=== PATIENT | male | born 1990 | race American Indian/Alaskan Native ===

== ENCOUNTER 2017-01-05 06:52 | Emergency (ER) | payer MEDICARE ==
[2017-01-05 07:15] VITALS: BP 114/73
--- NOTE | 2017-01-05 07:33 | Emergency Department Report ---
ED Recheck HPI - General Chief Complaint: Recheck/Abnormal Lab/Rx Stated Complaint: SEIZURE Time Seen by Provider: 01/05/17 07:19 Source: patient, family Mode of arrival: Ambulatory Limitations: No Limitations - History of Present Illness Initial Comments: Patient here with mom to request medication refill". Patient is autistic and able to answer some questions Patient has not taken his Depakote since yesterday. She ran out and he is in between doctors at present. Mom reported the patient is on Depakote for seizures and no neurologist at present. She said patient had seizure last month. She says she usually sees Dr. Sosa at the urgent care across the street but she cannot afford the co-pay anymore. Denies any headache, blurred physician or dizziness. Mom presented with Empty pill bottle. MD Complaint: medication refill request Returns Today for: request for prescription Associated Symptoms: denies: fever, chills, chest pain, shortness of breath, rash, malaise, nasuea, abdominal pain - Related Data Previous Rx's Medication Instructions Recorded Last Taken Type Azithromycin [Zithromax Z-SOPHIA] 250 mg PO DAILY #1 pkg 11/17/15 Unknown Rx Promethazine /Codeine 5 ml PO Q6H PRN #60 ml 11/17/15 Unknown Rx [Phenergan/Codeine 6.25-10 mg/5 ml] Divalproex Dr [Depakote Dr] 250 mg PO BID #60 tablet 01/05/17 Unknown Rx Allergies Allergy/AdvReac Type Severity Reaction Status Date / Time No Known Allergies Allergy Verified 11/17/15 08:40 ED Review of Systems ROS: Stated complaint: SEIZURE Other details as noted in HPI Comment: All other systems reviewed and negative Constitutional: denies: chills, fever Respiratory: no symptoms reported Cardiovascular: denies: chest pain, palpitations, edema, syncope Gastrointestinal: denies: abdominal pain, nausea, vomiting Musculoskeletal: denies: back pain, arthralgia Skin: denies: rash Neurological: denies: headache, numbness, paresthesias, confusion, abnormal gait ED Past Medical Hx - Past Medical History Previous Medical History?: Yes Hx Seizures: Yes Additional medical history: AUTISTIC - Surgical History Past Surgical History?: No - Family History Family history: no significant - Social History Smoking Status: Never Smoker Substance Use Type: None - Medications Home Medications: Home Medications Medication Instructions Recorded Confirmed Last Taken Type Azithromycin [Zithromax Z-SOPHIA] 250 mg PO DAILY #1 pkg 11/17/15 Unknown Rx Promethazine /Codeine 5 ml PO Q6H PRN #60 ml 11/17/15 Unknown Rx [Phenergan/Codeine 6.25-10 mg/5 ml] Divalproex Dr [Depakote Dr] 250 mg PO BID #60 tablet 01/05/17 Unknown Rx ED Physical Exam - General Limitations: No Limitations General appearance: alert, in no apparent distress - Head Head exam: Present: atraumatic, normocephalic, normal inspection - Eye Eye exam: Present: normal appearance, PERRL, EOMI Pupils: Present: normal accommodation - Neck Neck exam: Present: normal inspection, full ROM. Absent: tenderness, meningismus, lymphadenopathy - Respiratory Respiratory exam: Present: normal lung sounds bilaterally. Absent: respiratory distress - Cardiovascular Cardiovascular Exam: Present: regular rate, normal rhythm, normal heart sounds - GI/Abdominal GI/Abdominal exam: Present: soft, normal bowel sounds. Absent: distended, tenderness, guarding, rebound, rigid - Extremities Exam Extremities exam: Present: normal inspection, full ROM, normal capillary refill. Absent: tenderness, pedal edema - Back Exam Back exam: Present: normal inspection, full ROM. Absent: tenderness, CVA tenderness (R), CVA tenderness (L), muscle spasm, paraspinal tenderness, vertebral tenderness, rash noted - Neurological Exam Neurological exam: Present: alert, oriented X3, normal gait, reflexes normal. Absent: motor sensory deficit - Psychiatric Psychiatric exam: Present: normal affect, normal mood - Skin Skin exam: Present: warm, dry, intact, normal color. Absent: rash ED Course Vital Signs 01/05/17 07:13 Temperature 97.6 F Pulse Rate 63 Respiratory 16 Rate Blood Pressure 114/73 O2 Sat by Pulse 99 Oximetry - Reevaluation(s) Reevaluation #1: 01/05/17 08:00 ED course uneventful ED Recheck MDM - Differential Diagnosis Prescription Refill(s) - Medical Decision Making ED course: This is a not to stick patient that presents to the emergency room with his mom. Mom requested a refill on Depakote. She has an AAA bottle and said that patient took Depakote last yesterday. I will go ahead and refill Depakote and referred patient to neurologist and also the primary care doctor. I discussed this with patient and mom and dad in agreement. Patient discharged home in stable condition with his mom with prescription for Depakote. Critical care attestation.: If time is entered above; I have spent that time in minutes in the direct care of this critically ill patient, excluding procedure time. ED Disposition Clinical Impression: Medication refill Disposition: DISCHARGED TO HOME OR SELFCARE Is pt being admited?: No Does the pt Need Aspirin: No Condition: Stable Instructions: Epilepsy (ED) Additional Instructions: Please see referral for primary care and neurologist in discharge instruction per report. Prescriptions: Divalproex Dr [Depakote Dr] 250 mg PO BID #60 tablet Referrals: CECI BARBA MD [Staff Physician] - 3-5 Days MOSES JENKINS MD [Staff Physician] - 3-5 Days Forms: Accompanied Note, Work/School Release Form(ED)
== END 2017-01-05 08:10 | disposition home or self-care (01) ==
LOC: ED 06:52
DX: Z76.0 Encounter for issue of repeat prescription (principal); R56.9 Unspecified convulsions; F84.0 Autistic disorder
CPT/HCPCS: 99282

== ENCOUNTER 2017-03-21 08:22 | Emergency (ER) | payer MEDICARE ==
[2017-03-21 08:32] VITALS: BP 101/64
--- NOTE | 2017-03-21 09:54 | Emergency Department Report ---
Entered by MAMI MARTINEZ, acting as scribe for SADA PENNINGTON PA. ED Recheck HPI - General Chief Complaint: Recheck/Abnormal Lab/Rx Stated Complaint: MEDS REFILL Time Seen by Provider: 03/21/17 08:50 Source: patient, family Mode of arrival: Ambulatory Limitations: No Limitations - History of Present Illness Initial Comments: 26 y/o male with a PMHx of seizures presents to the ED by his mother c/o a medication refill since last night. Patient's mother states that he ran out of Depakote 250 mg (BID) last night. Denies any symptoms. Reports he gets prescription Dr. Ashraf from and urgent car, but couldn't afford to visit him for refills. NKDA. OMALLEY Complaint: medication refill request (Depakote) -: Last night Initial Visit For: other (Depakote medication refill) Returns Today for: request for prescription (Depakote 250 mg BID) Symptoms Since Prior Visit: no new symptoms Context: ran out of medication Associated Symptoms: none - Related Data Previous Rx's Medication Instructions Recorded Last Taken Type Divalproex Dr [Depakote Dr] 250 mg PO BID #60 tablet 01/05/17 03/20/17 20:[address] [DepaKOTE DR] 250 mg PO BID #60 tablet 03/21/17 Unknown Rx Allergies Allergy/AdvReac Type Severity Reaction Status Date / Time No Known Allergies Allergy Verified 03/21/17 08:27 ED Review of Systems Comment: All other systems reviewed and negative Constitutional: no symptoms reported. denies: weakness Eyes: as per HPI ENT: as per HPI Respiratory: no symptoms reported. denies: shortness of breath Cardiovascular: as per HPI Endocrine: no symptoms reported Gastrointestinal: as per HPI. denies: nausea Genitourinary: as per HPI Musculoskeletal: as per HPI Skin: as per HPI Neurological: as per HPI. denies: headache, weakness, paresthesias, abnormal gait ED Past Medical Hx - Past Medical History Hx Seizures: Yes Additional medical history: AUTISTIC - Surgical History Past Surgical History?: No - Social History Smoking Status: Never Smoker Substance Use Type: None - Medications Home Medications: Home Medications Medication Instructions Recorded Confirmed Last Taken Type Divalproex Dr [Depakote Dr] 250 mg PO BID #60 tablet 01/05/17 03/21/1703/20/17 20:[address] [DepaKOTE DR] 250 mg PO BID #60 tablet 03/21/17 Unknown Rx ED Physical Exam - General Limitations: No Limitations General appearance: alert, in no apparent distress - Head Head exam: Present: atraumatic, normocephalic - Eye Eye exam: Present: normal appearance, EOMI - ENT ENT exam: Present: normal exam, mucous membranes moist - Neck Neck exam: Present: normal inspection, full ROM - Respiratory Respiratory exam: Present: normal lung sounds bilaterally. Absent: respiratory distress - Cardiovascular Cardiovascular Exam: Present: regular rate, normal rhythm - GI/Abdominal GI/Abdominal exam: Present: soft, normal bowel sounds - Extremities Exam Extremities exam: Present: normal inspection, full ROM - Back Exam Back exam: Present: normal inspection, full ROM - Neurological Exam Neurological exam: Present: alert, oriented X3 - Psychiatric Psychiatric exam: Present: normal affect, normal mood - Skin Skin exam: Present: warm, dry, intact. Absent: rash ED Course Vital Signs 03/21/17 08:31 Temperature 98.3 F Pulse Rate 68 Respiratory 16 Rate Blood Pressure 101/64 O2 Sat by Pulse 98 Oximetry ED Recheck MDM - Medical Decision Making A/P: Medication refill 1-states that patient ran out of [facility] yesterday, has history of seizures 2-mother also requesting primary care referral 3-patient and mother have no other complaints whatsoever ED Disposition Clinical Impression: Medication refill Disposition: DISCHARGED TO HOME OR SELFCARE Is pt being admited?: No Does the pt Need Aspirin: No Condition: Stable Instructions: Divalproex (By mouth) Prescriptions: Divalproex Dr [DepaKOTE DR] 250 mg PO BID #60 tablet Referrals: [facility] [Outside] - 3-5 Days [facility] [Outside] - 3-5 Days SADA MAYFIELD MD [Staff Physician] - 3-5 Days Forms: Work/School Release Form(ED) This documentation as recorded by the MICHELLE weeks JASMINE,accurately reflects the service I personally performed and the decisions made by ,SADA PENNINGTON, PA.
== END 2017-03-21 09:54 | disposition home or self-care (01) ==
LOC: ED 08:22
DX: Z76.0 Encounter for issue of repeat prescription (principal)
CPT/HCPCS: 99282

== ENCOUNTER 2017-06-07 08:55 | Emergency (ER) | payer MEDICARE ==
[2017-06-07 09:08] VITALS: BP 107/74
--- NOTE | 2017-06-07 12:39 | Emergency Department Report ---
ED General Adult HPI - General Chief complaint: Recheck/Abnormal Lab/Rx Stated complaint: HEADACHE/ MED REFILL Time Seen by Provider: 06/07/17 11:57 Source: patient, family Mode of arrival: Ambulatory Limitations: No Limitations - History of Present Illness Initial comments: medications refill no acute symptoms no seizures Onset/Timin -: days(s) Severity scale (0 -10): 0 Improves with: none, other (current rx Depakote 250 mg po bid last dose yesterday ) Worsens with: none Associated Symptoms: denies other symptoms Treatments Prior to Arrival: none - Related Data Previous Rx's Medication Instructions Recorded Last Taken Type Divalproex Dr [DepaKOTE DR] 250 mg PO BID #60 tablet 03/21/[address] [Depakote Dr] 250 mg PO BID #60 tablet 06/07/17 Unknown Rx Allergies Allergy/AdvReac Type Severity Reaction Status Date / Time No Known Allergies Allergy Verified 06/07/17 09:04 ED Review of Systems ROS: Stated complaint: HEADACHE/ MED REFILL Other details as noted in HPI Constitutional: denies: chills, fever Eyes: denies: eye pain, eye discharge, vision change ENT: denies: ear pain, throat pain Respiratory: denies: cough, shortness of breath, wheezing Cardiovascular: denies: chest pain, palpitations Endocrine: no symptoms reported Gastrointestinal: denies: abdominal pain, nausea, diarrhea Genitourinary: denies: urgency, dysuria Musculoskeletal: denies: back pain, joint swelling, arthralgia Skin: denies: rash, lesions Neurological: denies: headache, weakness, paresthesias Psychiatric: denies: anxiety, depression Hematological/Lymphatic: denies: easy bleeding, easy bruising ED Past Medical Hx - Past Medical History Hx Seizures: Yes Additional medical history: AUTISTIC - Surgical History Past Surgical History?: No - Social History Smoking Status: Never Smoker Substance Use Type: None - Medications Home Medications: Home Medications Medication Instructions Recorded Confirmed Last Taken Type Divalproex Dr [DepaKOTE DR] 250 mg PO BID #60 tablet 03/21/[address] [Depakote Dr] 250 mg PO BID #60 tablet 06/07/17 Unknown Rx ED Physical Exam - General Limitations: No Limitations General appearance: alert, in no apparent distress - Head Head exam: Present: atraumatic, normocephalic - Eye Eye exam: Present: normal appearance - ENT ENT exam: Present: mucous membranes moist - Neck Neck exam: Present: normal inspection - Respiratory Respiratory exam: Present: normal lung sounds bilaterally. Absent: respiratory distress - Cardiovascular Cardiovascular Exam: Present: regular rate, normal rhythm. Absent: systolic murmur, diastolic murmur, rubs, gallop - GI/Abdominal GI/Abdominal exam: Present: soft, normal bowel sounds - Rectal Rectal exam: Present: deferred - Extremities Exam Extremities exam: Present: normal inspection - Back Exam Back exam: Present: normal inspection - Neurological Exam Neurological exam: Present: alert, oriented X3, CN II-XII intact, normal gait, reflexes normal - Psychiatric Psychiatric exam: Present: normal affect, normal mood - Skin Skin exam: Present: warm, dry, intact, normal color. Absent: rash ED Course Vital Signs 06/07/17 09:06 Temperature 98.7 F Pulse Rate 62 Respiratory 16 Rate Blood Pressure 107/74 O2 Sat by Pulse 100 Oximetry ED Medical Decision Making - Medical Decision Making pt is a 26 y/o aam with hx of seizures presents with mother for medication refill for depakote po 250 mg po bid last seizure 1 month ago no acute complaint today exam unremarkable at this time a/x3 nad ambulatory gaits steady with nad . Critical care attestation.: If time is entered above; I have spent that time in minutes in the direct care of this critically ill patient, excluding procedure time. ED Disposition Clinical Impression: Medication refill Disposition: DC-01 TO HOME OR SELFCARE Is pt being admited?: No Does the pt Need Aspirin: No Condition: Good Instructions: Divalproex (By mouth) Additional Instructions: follow up with neurology as scheduled, Dr Amador Casey [phone], [address] [facility] [address] [place], [place] [id number] Prescriptions: Divalproex [Liza Barragan] 250 mg PO BID #60 tablet Referrals: PRIMARY CARE, [Primary Care Provider] - 3-5 Days Forms: Work/School Release Form(ED) Time of Disposition: 12:40
== END 2017-06-07 12:54 | disposition home or self-care (01) ==
LOC: ED 08:55
DX: Z76.0 Encounter for issue of repeat prescription (principal)
CPT/HCPCS: 99282

== ENCOUNTER 2017-07-19 05:19 | Emergency (ER) | payer MEDICARE ==
[2017-07-19 05:40] VITALS: BP 111/71
--- NOTE | 2017-07-19 07:54 | Emergency Department Report ---
ED Medical Clearance HPI - General Chief complaint: Medical Clearance Stated complaint: none Time Seen by Provider: 07/19/17 07:45 Source: patient, family Mode of arrival: Ambulatory Limitations: Other (autistic) - History of Present Illness -: Gradual Alledged Intoxication: No Compliant with Home Medications: Yes (out of meds. no pcp) Home medications: Previous Rx's Medication Instructions Recorded Last Taken Type Divalproex Dr [DepaKOTE DR] 250 mg PO BID #60 tablet 03/21/[address] [Depakote Dr] 250 mg PO BID #60 tablet 06/07/[address] [DepaKOTE DR] 250 mg PO BID #60 tablet 07/19/17 Unknown Rx Allergies/Adverse reactions: Allergies Allergy/AdvReac Type Severity Reaction Status Date / Time No Known Allergies Allergy Verified 06/07/17 09:04 ED Review of Systems ROS: Stated complaint: HEADACHE Other details as noted in HPI Comment: All other systems reviewed and negative Constitutional: no symptoms reported, see HPI Eyes: as per HPI ENT: as per HPI Respiratory: no symptoms reported, see HPI Cardiovascular: as per HPI Endocrine: no symptoms reported Gastrointestinal: as per HPI Genitourinary: as per HPI Musculoskeletal: as per HPI Skin: as per HPI Neurological: as per HPI Psychiatric: as per HPI Hematological/Lymphatic: as per HPI ED Past Medical Hx - Past Medical History Previous Medical History?: Yes Hx Seizures: Yes Additional medical history: AUTISTIC - Surgical History Past Surgical History?: No - Social History Smoking Status: Never Smoker Substance Use Type: None - Medications Home Medications: Home Medications Medication Instructions Recorded Confirmed Last Taken Type Divalproex Dr [DepaKOTE DR] 250 mg PO BID #60 tablet 03/21/[address] [Depakote Dr] 250 mg PO BID #60 tablet 06/07/[address] [DepaKOTE DR] 250 mg PO BID #60 tablet 07/19/17 Unknown Rx ED Physical Exam - General Limitations: Other (autisu) General appearance: alert, in no apparent distress - Head Head exam: Present: atraumatic - Eye Eye exam: Present: PERRL - ENT ENT exam: Present: mucous membranes moist - Respiratory Respiratory exam: Present: normal lung sounds bilaterally - Cardiovascular Cardiovascular Exam: Present: regular rate - GI/Abdominal GI/Abdominal exam: Present: soft - Rectal Rectal exam: Present: deferred - Extremities Exam Extremities exam: Present: normal inspection - Back Exam Back exam: Present: normal inspection - Neurological Exam Neurological exam: Present: alert, normal gait - Psychiatric Psychiatric exam: Present: normal affect, normal mood - Skin Skin exam: Present: warm, dry, intact, normal color ED Course Vital Signs 07/19/17 05:23 Temperature 97.9 F Pulse Rate 61 Respiratory 20 Rate Blood Pressure 111/71 [Right] O2 Sat by Pulse 100 Oximetry - Reevaluation(s) Reevaluation #1: 07/19/17 08:04 here w mother for med refill out of depokote stable no complaints no sz mom states changing pcp given name of pcp in area for med refill vss ED Medical Decision Making - Medical Decision Making routine med refill pcp referral given ED Disposition Clinical Impression: Medication refill Disposition: TO HOME OR SELFCARE Is pt being admited?: No Does the pt Need Aspirin: No Condition: Stable Additional Instructions: take meds daily as prescribed follow up with PCP Prescriptions: Divalproex [DepDaryn HUITRON] 250 mg PO BID #60 tablet Referrals: SADA QUIROZ MD [Primary Care Provider] - 3-5 Days QUIRINO GANDHI MD [Staff Physician] - 3-5 Days Time of Disposition: 07:52
== END 2017-07-19 08:03 | disposition home or self-care (01) ==
LOC: ED 05:19
DX: Z76.0 Encounter for issue of repeat prescription (principal)
CPT/HCPCS: 99282

== ENCOUNTER 2017-10-24 17:11 | Emergency (ER) | payer MEDICARE ==
[2017-10-24 17:17] VITALS: BP 109/64
--- NOTE | 2017-10-24 19:34 | Emergency Department Report ---
ED Seizure HPI - General Chief Complaint: Medical Clearance Stated Complaint: REFILL ON SEZIURE MEDS Time Seen by Provider: 10/24/17 19:21 Source: patient, family (mother) Mode of arrival: Ambulatory Limitations: No Limitations - History of Present Illness Initial Comments: Patient with last seizure more than 4 months ago but had come in and got 30 days of meds from ER. Patient's mom states he ran out of meds 4 days ago but she could not account for the fact that she would have run out of meds over 2 months ago if she only used the 30 day supply from us in July. He has not had a seizure but will if he continues to be out. Complaint: seizure -: Gradual, days(s) (4) Description of Episode: tonic-clonic movement (When occur) Witnessed:: Yes Trauma: No Seizure History: known seizure disorder, compliant with medication Place: home Possible Precipitating Event: medication Associated Symptoms: denies other symptoms - Related Data Previous Rx's Medication Instructions Recorded Last Taken Type Divalproex Dr [Liza Barragan] 250 mg PO BID #60 tablet 06/07/[address] Sb BARRAGAN] 250 mg PO BID #60 tablet 07/19/[address] [Liza Barragan] 250 mg PO BID 10 Days #20 tablet 10/24/17 Unknown Rx Allergies Allergy/AdvReac Type Severity Reaction Status Date / Time No Known Allergies Allergy Verified 06/07/17 09:04 ED Review of Systems ROS: Stated complaint: REFILL ON SEZIURE MEDS Other details as noted in HPI Constitutional: denies: chills, fever Eyes: denies: eye pain, eye discharge, vision change ENT: denies: ear pain, throat pain Respiratory: denies: cough, shortness of breath, wheezing Cardiovascular: denies: chest pain, palpitations Endocrine: no symptoms reported Gastrointestinal: denies: abdominal pain, nausea, diarrhea Genitourinary: denies: urgency, dysuria Musculoskeletal: denies: back pain, joint swelling, arthralgia Skin: denies: rash, lesions Neurological: denies: headache, weakness, paresthesias Psychiatric: denies: anxiety, depression Hematological/Lymphatic: denies: easy bleeding, easy bruising ED Past Medical Hx - Past Medical History Hx Seizures: Yes Additional medical history: AUTISTIC - Social History Smoking Status: Never Smoker Substance Use Type: None - Medications Home Medications: Home Medications Medication Instructions Recorded Confirmed Last Taken Type Divalproex Dr [Depakote Dr] 250 mg PO BID #60 tablet 06/07/[address] [DepaKOTE DR] 250 mg PO BID #60 tablet 07/19/[address] [Depakote Dr] 250 mg PO BID 10 Days #20 tablet 10/24/17 Unknown Rx ED Physical Exam - General Limitations: No Limitations General appearance: alert, in no apparent distress - Head Head exam: Present: atraumatic, normocephalic - Eye Eye exam: Present: normal appearance - ENT ENT exam: Present: mucous membranes moist - Neck Neck exam: Present: normal inspection - Respiratory Respiratory exam: Present: normal lung sounds bilaterally. Absent: respiratory distress - Cardiovascular Cardiovascular Exam: Present: regular rate, normal rhythm. Absent: systolic murmur, diastolic murmur, rubs, gallop - GI/Abdominal GI/Abdominal exam: Present: soft, normal bowel sounds - Rectal Rectal exam: Present: deferred - Extremities Exam Extremities exam: Present: normal inspection - Back Exam Back exam: Present: normal inspection - Neurological Exam Neurological exam: Present: alert, oriented X3 - Psychiatric Psychiatric exam: Present: normal affect, normal mood - Skin Skin exam: Present: warm, dry, intact, normal color. Absent: rash ED Course Vital Signs 10/24/17 10/24/17 17:15 18:52 Temperature 98.7 F Pulse Rate 67 Respiratory 18 16 Rate Blood Pressure 109/64 O2 Sat by Pulse 98 Oximetry ED Medical Decision Making - Medical Decision Making Patient has not had a seizure and only needs refills to prevent. Patient has appointment with Dr. Yuan next week. I agreed to give the patient 10 days of meds until they can get to their follow up appointment. No work up is needed with no current seizure or complaints. Critical care attestation.: If time is entered above; I have spent that time in minutes in the direct care of this critically ill patient, excluding procedure time. ED Disposition Clinical Impression: Seizure, Medication refill Disposition: DC-01 TO HOME OR SELFCARE Is pt being admited?: No Does the pt Need Aspirin: No Condition: Good Instructions: Epilepsy (ED) Prescriptions: Divalproex Dr [Depakote Dr] 250 mg PO BID 10 Days #20 tablet Referrals: MERCEDES YUAN MD [Staff Physician] - 3-5 Days Time of Disposition: 19:35
== END 2017-10-24 19:50 | disposition home or self-care (01) ==
LOC: ED 17:11
DX: Z76.0 Encounter for issue of repeat prescription (principal); G40.909 Epilepsy, unspecified, not intractable, without status epilepticus
CPT/HCPCS: 99281

== ENCOUNTER 2017-11-26 18:26 | Emergency (ER) | payer MEDICARE | END 2017-11-26 19:47 | disposition left against medical advice (07) | LOC: ED 18:26 | DX: Z76.0 Encounter for issue of repeat prescription (principal); Z53.21 Procedure and treatment not carried out due to patient leaving prior to being seen by health care provider ==

== ENCOUNTER 2018-02-26 04:30 | Emergency (ER) | payer MEDICARE ==
[2018-02-26] MEDS ORDERED: HYDROGEN PEROXIDE ONE (08:47)
--- NOTE | 2018-02-26 08:47 | Emergency Department Report ---
ED ENT HPI - General Chief complaint: Earache Stated complaint: RIGHT EAR PAIN Time Seen by Provider: 02/26/18 08:32 Source: patient Mode of arrival: Ambulatory Limitations: No Limitations - History of Present Illness Initial comments: 27-year-old -Citizen Of [place] male comes to the emergency room after awakening this morning approximately 4 AM complaining of right ear pain. Patient reports he feels like a bug is in his ear. He reports it felt like it was moving. Patient has past medical history of autism and seizure disorder. He is currently taking Depakote as prescribed. He has no known drug allergies. MD complaint: ear pain (right ear) -: This morning (4 AM) Time: 04:00 Severity scale (0 -10): 10 Quality: aching Consistency: constant Improves with: none - Related Data Previous Rx's Medication Instructions Recorded Last Taken Type Divalproex Dr [Depakote Dr] 250 mg PO BID #60 tablet 06/07/[address] [EvgenyTE DR] 250 mg PO BID #60 tablet 07/19/[address] [Sona Barragan] 250 mg PO BID 10 Days #20 tablet 10/24/17 Unknown Rx Acetaminophen [Acetaminophen TAB] 975 mg PO ONCE #30 tablet 02/26/18 Unknown Rx Cipro/Dexameth 0.3/0.1% [Ciprodex 4 drops OT BID #1 bottle 02/26/18 Unknown Rx OTIC] Allergies Allergy/AdvReac Type Severity Reaction Status Date / Time No Known Allergies Allergy Verified 06/07/17 09:04 ED Dental HPI - General Chief complaint: Earache Stated complaint: RIGHT EAR PAIN Time Seen by Provider: 02/26/18 08:32 Source: patient Mode of arrival: Ambulatory Limitations: No Limitations - Related Data Previous Rx's Medication Instructions Recorded Last Taken Type Divalproex Dr [Depakote Dr] 250 mg PO BID #60 tablet 06/07/[address] [DepaKOTE DR] 250 mg PO BID #60 tablet 07/19/[address] [Depakote Dr] 250 mg PO BID 10 Days #20 tablet 10/24/17 Unknown Rx Acetaminophen [Acetaminophen TAB] 975 mg PO ONCE #30 tablet 02/26/18 Unknown Rx Cipro/Dexameth 0.3/0.1% [Ciprodex 4 drops OT BID #1 bottle 02/26/18 Unknown Rx OTIC] Allergies Allergy/AdvReac Type Severity Reaction Status Date / Time No Known Allergies Allergy Verified 06/07/17 09:04 ED Review of Systems ROS: Stated complaint: RIGHT EAR PAIN Other details as noted in HPI Constitutional: denies: chills, fever Eyes: denies: eye pain, eye discharge, vision change ENT: ear pain (right ear). denies: throat pain Respiratory: denies: cough, shortness of breath, wheezing Cardiovascular: denies: chest pain, palpitations Endocrine: no symptoms reported Gastrointestinal: denies: abdominal pain, nausea, diarrhea Genitourinary: denies: urgency, dysuria Musculoskeletal: denies: back pain, joint swelling, arthralgia Skin: denies: rash, lesions Neurological: denies: headache, weakness, paresthesias Psychiatric: denies: anxiety, depression Hematological/Lymphatic: denies: easy bleeding, easy bruising ED Past Medical Hx - Past Medical History Hx Seizures: Yes Additional medical history: AUTISTIC - Surgical History Past Surgical History?: No - Social History Smoking Status: Never Smoker Substance Use Type: None - Medications Home Medications: Home Medications Medication Instructions Recorded Confirmed Last Taken Type Divalproex Dr [Sona Barragan] 250 mg PO BID #60 tablet 06/07/[address] [Sona BARRAGAN] 250 mg PO BID #60 tablet 07/19/[address] [Sona Barragan] 250 mg PO BID 10 Days #20 tablet 10/24/17 Unknown Rx Acetaminophen [Acetaminophen TAB] 975 mg PO ONCE #30 tablet 02/26/18 Unknown Rx Cipro/Dexameth 0.3/0.1% [Ciprodex 4 drops OT BID #1 bottle 02/26/18 Unknown Rx OTIC] ED Physical Exam - General Limitations: No Limitations General appearance: alert, in no apparent distress - Head Head exam: Present: atraumatic, normocephalic - Eye Eye exam: Present: normal appearance - ENT ENT exam: Present: mucous membranes moist - Expanded ENT Exam Expanded TM/Canal exam: Foreign Body: Right TM (bug/insect) - Neck Neck exam: Present: normal inspection - Respiratory Respiratory exam: Present: normal lung sounds bilaterally. Absent: respiratory distress - Cardiovascular Cardiovascular Exam: Present: regular rate, normal rhythm. Absent: systolic murmur, diastolic murmur, rubs, gallop - GI/Abdominal GI/Abdominal exam: Present: soft, normal bowel sounds - Extremities Exam Extremities exam: Present: normal inspection - Back Exam Back exam: Present: normal inspection - Neurological Exam Neurological exam: Present: alert, oriented X3 - Psychiatric Psychiatric exam: Present: normal affect, normal mood - Skin Skin exam: Present: warm, dry, intact, normal color. Absent: rash ED Course Vital Signs 02/26/18 04:41 Temperature 98.4 F Pulse Rate 68 Respiratory 18 Rate Blood Pressure 121/60 O2 Sat by Pulse 97 Oximetry ED Medical Decision Making - Medical Decision Making Patient's been evaluated but this provider in fast track. Examination of the left ear shows normal tympanic membrane with no signs of infection. Or foreign object. Right ear shows there is an insect deep into the canal. Provider made an attempt to remove with alligator forceps. Having the nurses flushed the ear. We'll make an attempt to remove curette. We'll give patient 975 mg of Tylenol for pain. Critical care attestation.: If time is entered above; I have spent that time in minutes in the direct care of this critically ill patient, excluding procedure time. ED Disposition Clinical Impression: Foreign body of ear, left Qualifiers: Encounter type: initial encounter Qualified Code(s): T16.2XXA - Foreign body in left ear, initial encounter Disposition: TO HOME OR SELFCARE Is pt being admited?: No Does the pt Need Aspirin: No Condition: Stable Instructions: Ear Foreign Body (ED) Additional Instructions: Please follow up with our ear nose and throat doctor for removal of insect in right ear. Prescriptions: Acetaminophen [Acetaminophen TAB] 975 mg PO ONCE #30 tablet Cipro/Dexameth 0.3/0.1% [Ciprodex OTIC] 4 drops OT BID #1 bottle Referrals: KAYODE WOODS MD [Primary Care Provider] - 3-5 Days NOEMY HERNANDEZ MD [Staff Physician] - 3-5 Days DARRIN LAU MD [Staff Physician] - 3-5 Days CONNER ESPINOZA MD [Staff Physician] - 3-5 Days Forms: Accompanied Note, Work/School Release Form(ED)
[2018-02-26] MEDS ORDERED: TYLENOL PO ONE (08:50)
[2018-02-26] MEDS ORDERED: HYDROGEN PEROXIDE IRRIGATION ONE (08:54)
[2018-02-26 09:40] VITALS: BP 119/77
== END 2018-02-26 09:58 | disposition home or self-care (01) ==
LOC: ED 04:30
DX: T16.1XXA Foreign body in right ear, initial encounter (principal); G40.909 Epilepsy, unspecified, not intractable, without status epilepticus; F84.0 Autistic disorder; X58.XXXA Exposure to other specified factors, initial encounter
CPT/HCPCS: 99282

== ENCOUNTER 2018-08-28 16:44 | Emergency (ER) | payer MEDICARE ==
[2018-08-28 17:26] VITALS: BP 108/60
--- NOTE | 2018-08-28 18:10 | Emergency Department Report ---
ED General Adult HPI - General Chief complaint: Psych Stated complaint: 1013 Time Seen by Provider: 08/28/18 17:21 Source: patient, family, RN notes reviewed Mode of arrival: Ambulatory Limitations: Other (patient is developmentally delayed.) - History of Present Illness Initial comments: History obtained by patient's mother, Ms. Lisandra Agee; [phone] This is a 27-year-old gentleman with autism/developmental delay who was brought to the hospital for evaluation. Apparently, the patient got angry at home, and contacted 911. He has no complaints to me. His mother endorses no concern for homicidality, suicidality, hallucinations, or access to guns and/or firearms. Mother reports that she counts the patient's pills every day, and reports that as of now all of his current pill counts and up. She reports no medical concerns at this time, and would like to be discharged. The patient is asking to eat and has no complaints. -: This afternoon Severity scale (0 -10): 0 Improves with: none Worsens with: none Associated Symptoms: denies other symptoms - Related Data Previous Rx's Medication Instructions Recorded Last Taken Type Divalproex Dr [Sona Barragan] 250 mg PO BID #60 tablet 06/07/[address] Sb BARRAGAN] 250 mg PO BID #60 tablet 07/19/[address] Sb Barragan] 250 mg PO BID 10 Days #20 tablet 10/24/17 Unknown Rx Acetaminophen [Acetaminophen TAB] 975 mg PO ONCE #30 tablet 02/26/18 Unknown Rx Cipro/Dexameth 0.3/0.1% [Ciprodex 4 drops OT BID #1 bottle 02/26/18 Unknown Rx OTIC] Allergies Allergy/AdvReac Type Severity Reaction Status Date / Time No Known Allergies Allergy Verified 06/07/17 09:04 ED Review of Systems ROS: Stated complaint: 1013 Other details as noted in HPI Comment: All other systems reviewed and negative (review of systems as per mother) ED Past Medical Hx - Past Medical History Hx Seizures: Yes Additional medical history: AUTISTIC - Surgical History Past Surgical History?: No - Social History Smoking Status: Never Smoker Substance Use Type: None - Medications Home Medications: Home Medications Medication Instructions Recorded Confirmed Last Taken Type Divalproex Dr Sb Barragan] 250 mg PO BID #60 tablet 06/07/[address] [Sona BARRAGAN] 250 mg PO BID #60 tablet 07/19/[address] [Sona Barragan] 250 mg PO BID 10 Days #20 tablet 10/24/17 Unknown Rx Acetaminophen [Acetaminophen TAB] 975 mg PO ONCE #30 tablet 02/26/18 Unknown Rx Cipro/Dexameth 0.3/0.1% [Ciprodex 4 drops OT BID #1 bottle 02/26/18 Unknown Rx OTIC] ED Physical Exam - General Limitations: Other (patient is developmentally delayed) General appearance: alert, in no apparent distress - Head Head exam: Present: atraumatic, normocephalic - Eye Eye exam: Present: normal appearance, EOMI - ENT ENT exam: Present: normal exam, normal orophraynx, normal external ear exam - Neck Neck exam: Present: normal inspection, full ROM. Absent: tenderness, meningismus - Respiratory Respiratory exam: Present: normal lung sounds bilaterally. Absent: respiratory distress - Cardiovascular Cardiovascular Exam: Present: regular rate, normal rhythm, normal heart sounds. Absent: bradycardia, tachycardia, irregular rhythm, systolic murmur, diastolic murmur, rubs, gallop - GI/Abdominal GI/Abdominal exam: Present: soft. Absent: distended, tenderness, guarding, rebound, rigid, pulsatile mass - Extremities Exam Extremities exam: Present: normal inspection, full ROM, other (2+ pulses in the upper extremities. Compartments soft. There is no long bony tenderness.) - Back Exam Back exam: Present: normal inspection, full ROM. Absent: tenderness, CVA tenderness (R), paraspinal tenderness, vertebral tenderness - Neurological Exam Neurological exam: Present: other (a CT is developmentally delayed. Makes good eye contact. 5 out of 5 strength in 4 extremities. Sensation is intact to light touch in 4 extremities. No facial droop. Tongue midline. Extraocular movements intact bilaterally.) - Psychiatric Psychiatric exam: Present: anxious - Skin Skin exam: Present: warm, dry ED Course Vital Signs 08/28/18 08/28/18 17:21 17:28 Temperature 98.8 F 98.8 F Pulse Rate 90 90 Respiratory 18 18 Rate Blood Pressure 108/60 Blood Pressure 108/60 [Right] O2 Sat by Pulse 99 99 Oximetry ED Medical Decision Making - Lab Data Vital Signs 08/28/18 08/28/18 17:21 17:28 Temperature 98.8 F 98.8 F Pulse Rate 90 90 Respiratory 18 18 Rate Blood Pressure 108/60 Blood Pressure 108/60 [Right] O2 Sat by Pulse 99 99 Oximetry - Medical Decision Making Differential diagnosis, including but not limited to: Developmental delay, autism, medical clearance Assessment and plan: 27-year-old male who is brought to the hospital after he contacted 911 after getting angry at home. Mother has no concerns for homicidality or suicidality. She endorses no medical concerns either. The patient is pleasant and cooperative, and has an unremarkable physical examination. There does not appear to be an emergent medical condition at this time. There does not appear to be an emergent psychiatric condition at this time, patient is medically suitable for discharge at this point in time. Critical care attestation.: If time is entered above; I have spent that time in minutes in the direct care of this critically ill patient, excluding procedure time. ED Disposition Clinical Impression: General medical exam Disposition: DC-01 TO HOME OR SELFCARE Is pt being admited?: No Does the pt Need Aspirin: No Condition: Good Additional Instructions: Continue current outpatient medications. Follow-up with her primary care doctor or psychiatrist within the next month. Return to the ER right away with homicidality, suicidality, projectile vomiting, change in mental status, confusion, inability to tolerate liquid feeds. Referrals: [facility] [Provider Group] - 3-5 Days
== END 2018-08-28 21:00 | disposition home or self-care (01) ==
LOC: ED 16:44
DX: Z00.00 Encounter for general adult medical examination without abnormal findings (principal)
CPT/HCPCS: 99283

== ENCOUNTER 2019-01-04 09:03 | Emergency (ER) | payer MEDICARE ==
[2019-01-04 09:12] VITALS: BP 103/76
--- NOTE | 2019-01-04 09:17 | Emergency Department Report ---
ED Recheck HPI - General Chief Complaint: Medical Clearance Stated Complaint: MED REFILL Time Seen by Provider: 01/04/19 09:14 Source: patient Mode of arrival: Ambulatory Limitations: No Limitations - History of Present Illness Initial Comments: Patient is well known to us here in the emergency room. He is a 28-year-old autistic child who comes here frequently for his Depakote refills. His mother states today that she is having problems with his insurance and changing his PCP. I have looked up the PCP for P for the mother and given her the address which is in [place]. Child has had no seizures. - Related Data Previous Rx's Medication Instructions Recorded Last Taken Type Divalproex Dr [DepaKOTE DR] 250 mg PO BID #60 tablet 01/04/19 Unknown Rx Allergies Allergy/AdvReac Type Severity Reaction Status Date / Time No Known Allergies Allergy Verified 06/07/17 09:04 ED Review of Systems ROS: Stated complaint: MED REFILL Other details as noted in HPI Comment: no complaints ED Past Medical Hx - Past Medical History Previous Medical History?: Yes Hx Seizures: Yes Additional medical history: AUTISTIC - Surgical History Past Surgical History?: No - Social History Smoking Status: Never Smoker Substance Use Type: None - Medications Home Medications: Home Medications Medication Instructions Recorded Confirmed Last Taken Type Divalproex Dr [DepaKOTE DR] 250 mg PO BID #60 tablet 01/04/19 Unknown Rx ED Physical Exam - General Limitations: No Limitations General appearance: alert - Head Head exam: Present: atraumatic - Eye Eye exam: Present: normal appearance, PERRL - ENT ENT exam: Present: normal exam - Neck Neck exam: Present: normal inspection - Respiratory Respiratory exam: Present: normal lung sounds bilaterally - Cardiovascular Cardiovascular Exam: Present: regular rate - GI/Abdominal GI/Abdominal exam: Present: soft, normal bowel sounds - Extremities Exam Extremities exam: Present: normal inspection - Back Exam Back exam: Present: normal inspection - Neurological Exam Neurological exam: Present: alert - Psychiatric Psychiatric exam: Present: normal affect ED Course Vital Signs 01/04/19 09:08 Temperature 97.7 F Pulse Rate 75 Respiratory 18 Rate Blood Pressure 103/76 [Left] O2 Sat by Pulse 98 Oximetry ED Recheck MDM - Core Measures Measure Exclusions: not indicated - Differential Diagnosis Prescription Refill(s) Critical care attestation.: If time is entered above; I have spent that time in minutes in the direct care of this critically ill patient, excluding procedure time. ED Disposition Clinical Impression: Medication refill Disposition: DC-01 TO HOME OR SELFCARE Is pt being admited?: No Does the pt Need Aspirin: No Condition: Stable Prescriptions: Divalproex Dr [DepaKOTE DR] 250 mg PO BID #60 tablet Referrals: SADA QUIROZ MD [Staff Physician] - 3-5 Days Time of Disposition: 09:16
== END 2019-01-04 09:20 | disposition home or self-care (01) ==
LOC: ED 09:03
DX: R56.9 Unspecified convulsions (principal); Z76.0 Encounter for issue of repeat prescription
CPT/HCPCS: 99282

== ENCOUNTER 2019-03-07 08:28 | Emergency (ER) | payer MEDICARE ==
[2019-03-07 08:52] VITALS: BP 118/71
--- NOTE | 2019-03-07 10:34 | Emergency Department Report ---
ED Recheck HPI - General Chief Complaint: Recheck/Abnormal Lab/Rx Stated Complaint: MEDS REFILL Time Seen by Provider: 03/07/19 10:14 Source: patient Mode of arrival: Ambulatory Limitations: No Limitations - History of Present Illness Initial Comments: This is a 28-year-old -[place] male accompanied by family member for medication refill. Past medical history of autism. Patient ran out of seizure medication yesterday. Family member states patient missed scheduled PCP appointment. He have follow-up appointment with primary care provider in a few weeks. Patient and family deny new symptoms. MD Complaint: medication refill request Onset/Timin -: days(s) Symptoms Since Prior Visit: no new symptoms Context: ran out of medication Associated Symptoms: none - Related Data Previous Rx's Medication Instructions Recorded Last Taken Type Divalproex Dr [Depakote Dr] 250 mg PO BID #60 tablet 03/07/19 Unknown Rx Allergies Allergy/AdvReac Type Severity Reaction Status Date / Time No Known Allergies Allergy Verified 06/07/17 09:04 ED Review of Systems ROS: Stated complaint: MEDS REFILL Other details as noted in HPI Constitutional: denies: chills, fever Respiratory: denies: cough, shortness of breath, wheezing Cardiovascular: denies: chest pain, palpitations Gastrointestinal: denies: abdominal pain, nausea, diarrhea Skin: denies: rash, lesions Neurological: denies: headache, weakness, paresthesias Psychiatric: denies: anxiety, depression ED Past Medical Hx - Past Medical History Previous Medical History?: Yes Hx Seizures: Yes Additional medical history: AUTISTIC - Social History Smoking Status: Never Smoker Substance Use Type: None - Medications Home Medications: Home Medications Medication Instructions Recorded Confirmed Last Taken Type Divalproex Dr [Depakote Dr] 250 mg PO BID #60 tablet 03/07/19 Unknown Rx ED Physical Exam - General Limitations: No Limitations General appearance: alert, in no apparent distress - Respiratory Respiratory exam: Present: normal lung sounds bilaterally. Absent: respiratory distress - Cardiovascular Cardiovascular Exam: Present: regular rate, normal rhythm. Absent: systolic murmur, diastolic murmur, rubs, gallop - GI/Abdominal GI/Abdominal exam: Present: soft, normal bowel sounds - Neurological Exam Neurological exam: Present: alert, oriented X3 - Psychiatric Psychiatric exam: Present: normal affect, normal mood - Skin Skin exam: Present: warm, dry, intact, normal color. Absent: rash ED Course Vital Signs 03/07/19 08:50 Temperature 97.7 F Pulse Rate 54 L Respiratory 20 Rate Blood Pressure 118/71 O2 Sat by Pulse 100 Oximetry ED Recheck MDM - Differential Diagnosis Prescription Refill(s) - Medical Decision Making Patient was examined by me. Vitals are normal and patient is in no acute distress. Patient denies new symptoms. Start depakote 250 mg po bid, #60. follow up with PCP. He agrees with ER plan. Patient discharged home in stable condition. Critical care attestation.: If time is entered above; I have spent that time in minutes in the direct care of this critically ill patient, excluding procedure time. ED Disposition Clinical Impression: Medication refill Disposition: DC-01 TO HOME OR SELFCARE Is pt being admited?: No Does the pt Need Aspirin: No Condition: Stable Additional Instructions: Follow-up with your primary care provider for more refills. Prescriptions: Divalproex [Depakote Dr] 250 mg PO BID #60 tablet Referrals: SADA QUIROZ MD [Primary Care Provider] - 3-5 Days Forms: Accompanied Note Time of Disposition: 10:35
== END 2019-03-07 11:08 | disposition home or self-care (01) ==
LOC: ED 08:28
DX: R56.9 Unspecified convulsions (principal); F84.0 Autistic disorder; Z76.0 Encounter for issue of repeat prescription

== ENCOUNTER 2021-04-24 14:01 | Emergency (ER) | payer MEDICARE ==
[2021-04-24 14:44] VITALS: BP 108/50
--- NOTE | 2021-04-24 15:40 | Emergency Department Report ---
ED General Adult HPI - General Chief complaint: Medical Clearance Stated complaint: SEIZURE MEDS Time Seen by Provider: 04/24/21 14:44 Source: patient Mode of arrival: Ambulatory Limitations: No Limitations - History of Present Illness Initial comments: 30-year-old -[place] male patient presents with his mother for seizure med refills today. Patient mother states he has been out of his meds for 2 days and usually around 48 hours he begins to develop seizures if he has not taking his medications. He denies any current symptoms and states he is feeling well. Patient takes Depakote 250 twice daily and Abilify 5 mg daily. She states he is currently following with a neurologist and she plans to make an appointment for further refills. -: Sudden - Related Data Previous Rx's Medication Instructions Recorded Last Taken Type ARIPiprazole [Abilify TAB] 5 mg PO DAILY 30 Days #30 tab 04/24/[address] [Depakote Dr] 250 mg PO BID 30 Days #60 tablet 04/24/21 Unknown Rx Allergies Allergy/AdvReac Type Severity Reaction Status Date / Time No Known Allergies Allergy Verified 04/24/21 14:43 ED Review of Systems ROS: Stated complaint: SEIZURE MEDS Other details as noted in HPI Constitutional: denies: chills, fever, malaise Eyes: denies: vision change Respiratory: denies: cough, shortness of breath Cardiovascular: denies: chest pain Gastrointestinal: denies: nausea, vomiting Neurological: denies: headache, weakness, numbness, paresthesias, confusion, abnormal gait ED Past Medical Hx - Past Medical History Hx Seizures: Yes Additional medical history: AUTISTIC - Social History Smoking Status: Never Smoker Substance Use Type: None - Medications Home Medications: Home Medications Medication Instructions Recorded Confirmed Last Taken Type ARIPiprazole [Abilify TAB] 5 mg PO DAILY 30 Days #30 tab 04/24/[address] [Depakote Dr] 250 mg PO BID 30 Days #60 tablet 04/24/21 Unknown Rx ED Physical Exam - General Limitations: No Limitations General appearance: alert, in no apparent distress - Head Head exam: Present: atraumatic - Eye Eye exam: Present: normal appearance - Respiratory Respiratory exam: Absent: respiratory distress - Cardiovascular Cardiovascular Exam: Present: regular rate - Neurological Exam Neurological exam: Present: alert, oriented X3, normal gait - Psychiatric Psychiatric exam: Present: normal affect, normal mood - Skin Skin exam: Present: warm, dry, intact, normal color. Absent: rash, cyanosis, diaphoretic ED Course Vital Signs 04/24/21 14:42 Temperature 98.0 F Pulse Rate 80 Respiratory 12 Rate Blood Pressure 108/50 O2 Sat by Pulse 97 Oximetry ED Medical Decision Making - Medical Decision Making 30-year-old -[place] male patient presents with his mother for seizure med refills today. Patient mother states he has been out of his meds for 2 days and usually around 48 hours he begins to develop seizures if he has not taking his medications. He denies any current symptoms and states he is feeling well. Patient takes Depakote 250 twice daily and Abilify 5 mg daily. She states he is currently following with a neurologist and she plans to make an appointment for further refills. Refills given. Patient follow-up with his neurologist for further med refills. He is well-appearing and stable for discharge home. Strict return precautions were discussed in detail with patient and patient's mother who verbalized understanding peer Critical care attestation.: If time is entered above; I have spent that time in minutes in the direct care of this critically ill patient, excluding procedure time. ED Disposition Clinical Impression: Medication refill, Seizure disorder Disposition: DC-01 TO HOME OR SELFCARE Is pt being admited?: No Condition: Stable Instructions: Seizure, Adult Prescriptions: ARIPiprazole [Abilify TAB] 5 mg PO DAILY 30 Days #[address] [Depakote Dr] 250 mg PO BID 30 Days #60 tablet
== END 2021-04-24 16:30 | disposition home or self-care (01) ==
LOC: ED 14:01
DX: G40.909 Epilepsy, unspecified, not intractable, without status epilepticus (principal); Z79.899 Other long term (current) drug therapy; Z76.0 Encounter for issue of repeat prescription
CPT/HCPCS: 99281

== ENCOUNTER 2021-05-17 19:10 | Emergency (ER) | payer MEDICARE ==
[2021-05-17 20:45] VITALS: BP 121/80
--- NOTE | 2021-05-17 21:23 | XRay Report ---
Right foot 2 views INDICATION: Middle and foot FINDINGS: Mild degenerative changes great toe MTP joint. Mild soft tissue swelling throughout the chester t. No radiopaque foreign body. No acute fracture. Signer Name: Zaid Kelly MD Signed: 05/17/2021 9:19 PM Workstation Name: [id number]
[2021-05-17] MEDS ORDERED: TETANUS,DIPH,PERTUSS(ACELL) VACCINE 0.5 ML SYRINGE IM ONE (21:31)
[2021-05-17] MEDS ORDERED: IBUPROFEN 800 MG TAB PO ONE (21:31)
[2021-05-17] MEDS ORDERED: levoFLOXacin 500 MG TAB PO ONE (21:32)
--- NOTE | 2021-05-17 21:38 | Emergency Department Report ---
ED Lower Extremity HPI - General Chief Complaint: Extremity Injury, Lower Stated Complaint: STEPPED ON NAIL/RT FOOT Time Seen by Provider: 05/17/21 20:57 Source: patient Mode of arrival: Ambulatory Limitations: Other - History of Present Illness Initial Comments: Patient is a 30-year-old -[place] male who stepped on a nail yesterday. Now complains of 5-10 right foot pain and swelling unable to tolerate weight bearing. Patient states he was wearing a sneaker when incident happened. Last tetanus unknown, there is no bleeding or open wound at this time. Pain is exacerbated by weightbearing, pain is relieved by offloading. Patient did present tonight with family member. MD Complaint: foot injury - Related Data Previous Rx's Medication Instructions Recorded Last Taken Type ARIPiprazole [Abilify TAB] 5 mg PO DAILY 30 Days #30 tab 04/24/[address] [Depakote Dr] 250 mg PO BID 30 Days #60 tablet 04/24/21 Unknown Rx Ciprofloxacin HCl 500 mg PO BID 7 Days #14 tablet 05/17/21 Unknown Rx Ibuprofen [Motrin 800 MG tab] 800 mg PO Q8HR PRN #30 tablet 05/17/21 Unknown Rx Allergies Allergy/AdvReac Type Severity Reaction Status Date / Time No Known Allergies Allergy Verified 04/24/21 14:43 ED Review of Systems ROS: Stated complaint: STEPPED ON NAIL/RT FOOT Other details as noted in HPI Constitutional: no symptoms reported Eyes: denies: eye pain, eye discharge, vision change ENT: denies: ear pain, throat pain Respiratory: denies: cough, shortness of breath, wheezing Cardiovascular: denies: chest pain, palpitations Endocrine: no symptoms reported Gastrointestinal: denies: abdominal pain, nausea, diarrhea Genitourinary: denies: urgency, dysuria Musculoskeletal: other (right foot pain and swelling ) Skin: other (puncture wound right plantar foot lateral ). denies: rash, lesions Neurological: denies: headache, weakness, paresthesias Psychiatric: denies: anxiety, depression Hematological/Lymphatic: denies: easy bleeding, easy bruising ED Past Medical Hx - Past Medical History Previous Medical History?: Yes Hx Seizures: Yes Additional medical history: AUTISTIC - Surgical History Past Surgical History?: No - Social History Smoking Status: Never Smoker - Medications Home Medications: Home Medications Medication Instructions Recorded Confirmed Last Taken Type ARIPiprazole [Abilify TAB] 5 mg PO DAILY 30 Days #30 tab 04/24/[address] [Depakote Dr] 250 mg PO BID 30 Days #60 tablet 04/24/21 Unknown Rx Ciprofloxacin HCl 500 mg PO BID 7 Days #14 tablet 05/17/21 Unknown Rx Ibuprofen [Motrin 800 MG tab] 800 mg PO Q8HR PRN #30 tablet 05/17/21 Unknown Rx ED Physical Exam - General Limitations: Other General appearance: alert, in no apparent distress - Head Head exam: Present: normocephalic, normal inspection - Eye Eye exam: Present: normal appearance, EOMI Pupils: Present: normal accommodation - ENT ENT exam: Present: mucous membranes moist - Neck Neck exam: Present: normal inspection, full ROM. Absent: tenderness - Respiratory Respiratory exam: Present: normal lung sounds bilaterally. Absent: respiratory distress - Cardiovascular Cardiovascular Exam: Present: regular rate, normal heart sounds - GI/Abdominal GI/Abdominal exam: Present: soft, normal bowel sounds. Absent: distended, tenderness - Rectal Rectal exam: Present: deferred - Extremities Exam Extremities exam: Present: full ROM, tenderness (right plantar right foot pain), normal capillary refill - Expanded Lower Extremity Exam Right Foot/Toe exam: Present: full ROM, tenderness, swelling, erythema, puncture wound. Absent: abrasion, laceration, ecchymosis, deformity, crepidus, dislocation, amputation, foreign body, calcaneal tenderness, tenderness at base of 5th metatarsal, nail avulsion, subungual hematoma Neuro vascular tendon exam: Absent: pulse deficit, motor deficit, sensory deficit, tendon deficit Gait: Positive: observed and limited by pain - Back Exam Back exam: Present: normal inspection, full ROM. Absent: tenderness - Neurological Exam Neurological exam: Present: alert, oriented X3, CN II-XII intact, reflexes normal. Absent: motor sensory deficit - Expanded Neurological Exam Expanded Patient oriented to: Present: person, place, time Speech: Present: fluid speech Motor strength exam: RLE: 5, LLE: 5 Best Eye Response (Dennis): (4) open spontaneously Best Motor Response (Yanira): (6) obeys commands Best Verbal Response (Dennis): (5) oriented Yanira Total: 15 - Psychiatric Psychiatric exam: Present: normal affect, normal mood - Skin Skin exam: Present: warm, dry, normal color, other (puncture wound right plantar foot no bleeding no crepitus no deformity, mild swelling ). Absent: rash ED Course Vital Signs 05/17/21 20:40 Temperature 98.4 F Pulse Rate 62 Respiratory 18 Rate Blood Pressure 121/80 O2 Sat by Pulse 100 Oximetry ED Lower Extremity MDM - Radiology Data Radiology results: report reviewed, image reviewed Right foot 2 views INDICATION: Middle and foot FINDINGS: Mild degenerative changes great toe MTP joint. Mild soft tissue swelling throughout the foot. No radiopaque foreign body. No acute fracture. Signer Name: Zaid Cooper MD Signed: 05/17/2021 9:19 PM Workstation Name: [id number] Transcribed By: JENNIFER Dictated By: ERYN COOPER MD Electronically Authenticated By: ERYN COOPER MD Signed Date/Time: 05/17/212118 DD/ 17 TD/TT: - Medical Decision Making There is a right plantar foot puncture wound secondary to stepping on nail. There is no crepitus no drainage no bleeding. 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 Patient is partial weightbearing. plan: Crutches, NSAIDs. Pain, Cipro p.o., follow-up with primary care doctor in 2 to 3 days, return to ED should symptoms worsen. Patient and family member given infection teaching, crutch teaching, patient demonstrated safe use of same. Patient DC'd in stable condition. Critical care attestation.: If time is entered above; I have spent that time in minutes in the direct care of this critically ill patient, excluding procedure time. ED Disposition Clinical Impression: Nail wound of right foot Qualifiers: Encounter type: initial encounter Qualified Code(s): S91.331A - Puncture wound without foreign body, right foot, initial encounter Disposition: DC-01 TO HOME OR SELFCARE Is pt being admited?: No Does the pt Need Aspirin: No Condition: Stable Instructions: Puncture Wound, [id number], Crutch Use, Adult, [id number] Additional Instructions: Take medications as prescribed, use crutches as directed, follow up with your doctor in 2-3 days, return to emergency if symptoms worsen. Prescriptions: Ciprofloxacin HCl 500 mg PO BID 7 Days #14 tablet Ibuprofen [Motrin 800 MG tab] 800 mg PO Q8HR PRN #30 tablet PRN Reason: Pain Referrals: [facility] [place] [Provider Group] - 3-5 Days Forms: Work/School Release Form(ED) Time of Disposition: 21:47
== END 2021-05-17 23:15 | disposition home or self-care (01) ==
LOC: ED 19:10
DX: S91.331A Puncture wound without foreign body, right foot, initial encounter (principal); R56.9 Unspecified convulsions; Z79.1 Long term (current) use of non-steroidal anti-inflammatories (NSAID); Z79.899 Other long term (current) drug therapy; W22.8XXA Striking against or struck by other objects, initial encounter; Y93.89 Activity, other specified; Y92.89 Other specified places as the place of occurrence of the external cause; Y99.8 Other external cause status
CPT/HCPCS: 90471; 90715